=== PATIENT | male | born 1970 | race Caucasian/White ===

== ENCOUNTER 2020-10-01 21:49 | Emergency (ER) | payer OTHER ==
[~2020-10-01 21:49] MED LIST: BACTRIM DS TAB1 EACH PO; FLOMAX0.4 MG PO; ZOFRAN4 MG PO
[2020-10-02 00:41] LABS: HEMOGLOBIN 15.2 gm/dl (14.0-17.5); RED BLOOD COUNT 4.68 M/UL (4.20-5.50)
[2020-10-02 00:59] LABS: BUN/CREATININE RATIO 18 (0-10)
[2020-10-02] MEDS ORDERED: FLOMAX 0.4 MG0.4 MG PO (01:56)
[2020-10-02] MEDS ORDERED: ZOFRAN ODT 4 MG4 MG PO (01:56)
[2020-10-02] MEDS ORDERED: TORADOL 10 MG T10 MG PO (01:56)
[2021-02-02] MEDS ORDERED: PRILOSEC OTC20 MG PO (07:49)
[2021-02-02] MEDS ORDERED: ULTRAM50 MG PO (07:49)
== END 2020-10-02 02:08 | disposition home or self-care (01) ==
LOC: ER1 21:49
PROVIDERS: Physician Assistant
DX: N13.2 Hydronephrosis with renal and ureteral calculous obstruction (principal); Z87.442 Personal history of urinary calculi
CPT/HCPCS: 36415; 76870; 80053; 81001; 83690; 85025; 87086; 96374; 96375; 99284; J1885; J2405

== ENCOUNTER → 2020-10-06 | Outpatient (CLI) | payer OTHER ==
[~2020-10-06] MED LIST changes: +FLOMAX 0.4 MG0.4 MG PO; +PRILOSEC OTC20 MG PO; +TORADOL 10 MG T10 MG PO; +ULTRAM50 MG PO; +ZOFRAN ODT 4 MG4 MG PO
== END ==
LOC: EXRD 13:09
DX: N20.0 Calculus of kidney (principal)
CPT/HCPCS: 74018

== ENCOUNTER → 2020-10-07 | Outpatient (CLI) | payer OTHER | LOC: LAB 14:58 | PROVIDERS: Family Medicine | DX: E87.6 Hypokalemia (principal) | CPT/HCPCS: 36415; 80048 ==

== ENCOUNTER → 2020-10-14 | Outpatient (CLI) | payer OTHER | LOC: EXRD 13:49 | DX: N20.2 Calculus of kidney with calculus of ureter (principal) | CPT/HCPCS: 74018 ==

== ENCOUNTER → 2020-11-11 | Outpatient (CLI) | payer OTHER | LOC: EXRD 14:05 | DX: R06.02 Shortness of breath (principal) | CPT/HCPCS: 71046 ==

== ENCOUNTER → 2021-01-05 | Outpatient (CLI) | payer OTHER | LOC: EXRD 09:13 | DX: R10.11 Right upper quadrant pain (principal); K76.0 Fatty (change of) liver, not elsewhere classified | CPT/HCPCS: 76700 ==

== ENCOUNTER → 2021-02-02 | Day surgery (SDC) | payer OTHER | END | disposition home or self-care (01) | LOC: OR 06:25 | DX: D12.5 Benign neoplasm of sigmoid colon (principal); D12.8 Benign neoplasm of rectum; E66.3 Overweight; Z87.891 Personal history of nicotine dependence; Z68.28 Body mass index [BMI] 28.0-28.9, adult; K21.9 Gastro-esophageal reflux disease without esophagitis; K31.7 Polyp of stomach and duodenum; K64.1 Second degree hemorrhoids; K52.832 Lymphocytic colitis | CPT/HCPCS: J2704; J7040 ==

== ENCOUNTER → 2021-03-17 | Outpatient (CLI) | payer OTHER | LOC: ECHO 03-15 13:30 | DX: R07.9 Chest pain, unspecified (principal) | CPT/HCPCS: ECHO; 93017; 93306 ==

== ENCOUNTER → 2021-04-08 | Outpatient (CLI) | payer OTHER | LOC: LAB 12:31 | DX: R10.9 Unspecified abdominal pain (principal); N20.0 Calculus of kidney; K59.00 Constipation, unspecified | CPT/HCPCS: 74018; 81001; 87086 ==

== ENCOUNTER 2022-01-03 11:28 | Emergency (ER) | payer OTHER ==
[2022-01-03] MEDS ORDERED: IBUPROFEN600 MG PO (13:31)
== END 2022-01-03 13:51 | disposition home or self-care (01) ==
LOC: ER1 11:28
DX: S90.32XA Contusion of left foot, initial encounter (principal); W20.8XXA Other cause of strike by thrown, projected or falling object, initial encounter
CPT/HCPCS: 73630; 99283

== ENCOUNTER → 2022-02-11 | Outpatient (CLI) | payer OTHER ==
[~2022-02-11] MED LIST changes: +IBUPROFEN600 MG PO
[2022-02-11 15:10] LABS: HEMOGLOBIN 15.9 gm/dl (14.0-17.5); RED BLOOD COUNT 4.89 M/UL (4.20-5.50); WHITE BLOOD COUNT 7.1 K/UL (4.5-11.0)
[2022-02-11 15:38] LABS: BUN/CREATININE RATIO 15 (0-10)
== END ==
LOC: LAB 14:53
PROVIDERS: Family Medicine
DX: E78.2 Mixed hyperlipidemia (principal); R41.3 Other amnesia
CPT/HCPCS: 36415; 80053; 80061; 82607; 83735; 84443; 85027

== ENCOUNTER → 2022-02-15 | Outpatient (CLI) | payer OTHER | LOC: RAD 15:57 | DX: M54.2 Cervicalgia (principal) | CPT/HCPCS: 72050 ==